=== PATIENT | female | born 1975 | race Caucasian/White ===

== ENCOUNTER 2017-06-13 11:35 | Observation (INO) ==
--- NOTE | 2017-06-13 12:40 | Emergency Department Note ---
Disposition Clinical Impression: Acute appendicitis Qualifiers: Acute appendicitis type: with localized peritonitis Qualified Code(s): K35.3 - Acute appendicitis with localized peritonitis Disposition: Admitted As Inpatient Condition: Fair Referrals: Bethanie Mike [Family Provider] - Forms: Work/School Release, ED Satisfaction Letter Time of Disposition: 12:52 Abdominal Pain HPI - General Chief Complaint: ED Abdominal Pain Stated Complaint: RLQ pain-tx from [facility] Time Seen by Provider: 06/13/17 12:27 Source: patient Nursing Notes Reviewed: Yes Vital Signs Reviewed: Yes - History of Present Illness HPI Narrative: She has right lower quadrant pain which began while she was at work this morning at 2:00 and gradually increase and is constant and sharp and severe and she was seen at the [facility] emergency department and had a CT scan as well as labs and a did review these results and these showed acute appendicitis was asked to come to the emergency department here for consideration of emergent surgery. The patient denies any dysuria, urinary frequency, blood in the urine or stool, vaginal bleeding or discharge. Social history: No smoking or alcohol Pain Scale: 5 - Related Data Home Medications Medication Instructions Recorded Confirmed No Known Home Drugs 06/13/17 06/13/17 Allergies Allergy/AdvReac Type Severity Reaction Status Date / Time Penicillins Allergy Rash Verified 06/13/17 11:43 promethazine [From Phenergan] Allergy Irritable Verified 06/13/17 11:43 Sulfa (Sulfonamide Allergy Hives Verified 06/13/17 11:43 Antibiotics) Review of Systems: Constitutional: No fever Vision: No blurred vision ENT: No rhinorrhea Respiratory: No cough Allergic: No allergies : No blood in urine GI: No blood in stool Hematologic: No bruising Dermatologic: No skin rash Musculoskeletal: No pain in the extremities Neuro: No numbness of the extremities Abdominal Pain PMH - Past Medical History Medical history: Reports: no medical history Female Surgical History: Reports: other 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 EYES: PERRL, no scleral icterus. NOSE: The nose is normal in appearance without rhinorrhea RESP: Normal chest excursion with respiration; breath sounds clear and equal bilaterally; no wheezes, rhonchi, or rales CARD: Regular rhythm, without murmurs, rub or gallop ABD: Non-distended; normal appearance, moderate to severe pain localized to right lower quadrant with some voluntary guarding, elsewhere the abdomen is non -tender, soft,without rigidity, rebound or guarding SKIN: Normal for age and race; warm and dry; no apparent lesions - General Limitations: no limitations General appearance: alert Course Vital Signs Temperature 97.5 F L 06/13/17 11:43 Pulse Rate 108 06/13/17 11:43 Respiratory Rate 18 06/13/17 11:43 Blood Pressure 124/81 06/13/17 11:43 O2 Sat by Pulse Oximetry 99 06/13/17 11:43 Temperature 97.5 F L 06/13/17 11:43 Pulse Rate 108 06/13/17 11:43 Respiratory Rate 18 06/13/17 11:43 Blood Pressure 124/81 06/13/17 11:43 O2 Sat by Pulse Oximetry 99 06/13/17 11:43 Oxygen Delivery Oxygen Delivery Room Air Abdominal Pain - MDM Narrative Medical decision making narrative: Patient does have acute appendicitis and I did review the labs and CT from the previous institution. She declines pain medicine at this time. Did have a recent upper respiratory infection but those symptoms are largely resolved at this time. Surgery was paged. [id number] The case was discussed with Dr. Maciel who is on his way to the emergency department to see the patient [id number]
[2017-06-13] MEDS ORDERED: Ondansetron 4 MG/2 ML VIAL IVP ONE (13:38)
[2017-06-13] MEDS ORDERED: Ketorolac 15 MG/ML VIAL IVP ONE (15:06)
[2017-06-13] MEDS ORDERED: 0.9 % Sodium Chloride 1,000 ML IVC SCH (15:06)
[2017-06-13] MEDS ORDERED: *HR* HYDROmorphone (PF) 1 MG/ML SYRINGE IVP ONE (15:06)
--- NOTE | 2017-06-13 15:24 | General Surg History&Physical ---
Date of Encounter: 06/13/17 Time of Encounter: 15:00 Assessment and Plan (1) Acute appendicitis Current Visit: Yes Status: Acute The assessment and plan as outlined above was discussed with the patient and/or family members who expressed understanding and agreement. All questions were answered. Bowel rest IV fluids IV antibiotics- Cipro and Flagyl to be started now Supportive care and pain control Serial abdominal exams Risks, benefits, alternatives, expected outcomes have been reviewed with the patient she has agreed to proceed to the operating room for a laparoscopic appendectomy with Dr. Maciel in the next 24 hours. Incentive spirometer every 1 hour while awake PPI therapy daily Stool softeners twice daily Repeat a.m. labs Qualifiers: Acute appendicitis type: with localized peritonitis Qualified Code(s): K35.3 - Acute appendicitis with localized peritonitis (2) DVT prophylaxis Current Visit: Yes Status: Acute The assessment and plan as outlined above was discussed with the patient and/or family members who expressed understanding and agreement. All questions were answered. EPCDs to bilateral lower extremities for DVT prophylaxis Ambulate Colace 3 times a day with assistance History of Present Illness Chief complaint: Abdominal pain HPI: Ms. Munroe is a 42 year old female who reports the emergency department with complaints of sudden onset of abdominal discomfort at 2 AM this morning. She states the pain has progressively worsened since onset. She reports it as a sharp and stabbing pain which waxes and wanes. She states that certain positions do help the pain feel better (lying on her stomach). Movement and walking makes the pain worse. She has never experienced pain like this in the past. She did have multiple episodes of nausea and vomiting after onset of the pain this morning. She does report bright red blood in her vomit after multiple episodes of emesis. She admits to a fever up to 100 degrees. She admits to uncontrollable chills. Admits to loss of appetite and feeling of being bloated. She states that over the last week she has had a change in bowel habits and feels as though she is constipated. Denies any shortness of breath or chest pain. Denies any difficulty with urination however states that her urine is darker than normal. The patient states that she has had flulike symptoms for approximately one week and was swabbed for the flu which was negative. She states that she was feeling much better yesterday until sudden onset of pain last night. She was initially evaluated at [facility] and did have a CAT scan evaluation which shows findings consistent with acute appendicitis. The patient requested transfer to [place] for further workup and treatment. Past Med Surg Social Fam HX - Past Medical History Source: patient Medical history: no medical history Psychiatric history: anxiety - Past Surgical History Surgical History: cholecystectomy, other (Laparoscopy X 3 for endometriosis) - Social History Smoking Status: Never smoker Smokeless Tobacco Status: No Alcohol use: none Drug use: none Occupational status: employed Current living situation: Home - Independent Activity Level: Independent ambulation - Family History Mother Living Status: Still Living Hx Family Endocrine Disorder: Yes (Parathyroid growth (removed)) Father Living Status: Still Living Sister Living Status: Still Living Hx Family GI Disorders: Yes (IBS, diverticular disease) Medications and Allergies No Known Home Drugs 06/13/17 [History] 3 Allergy/AdvReac Type Severity Reaction Status Date / Time Penicillins Allergy Rash Verified 06/13/17 11:43 promethazine [From Phenergan] Allergy Irritable Verified 06/13/17 11:43 Sulfa (Sulfonamide Allergy Hives Verified 06/13/17 11:43 Antibiotics) Review of Systems All systems PM: reviewed and no additional remarkable complaints except as stated (in the HPI) All systems PM: A 10-system review of systems was performed and is negative for pertinent findings except as documented above in the HPI. General Surgery Exam Initial Vital Signs Temp Pulse Resp BP Pulse Ox 97.5 F L 108 18 124/81 99 06/13/17 11:43 06/13/17 11:43 06/13/17 11:43 06/13/17 11:43 06/13/17 11:43 - General physical appearance well developed, well nourished, no distress, moderate pain - Eyes normal ocular movement - ENT normal mucosa, atraumatic, normocephalic - Neck trachea midline - Respiratory normal respiratory effort, clear to auscultation - Cardiovascular Cardiovascular exam: Present: tachycardia (HR 110) - Abdomen Abdomen general surgery: Present: bowel sounds present, soft, tender Abdominal Tenderness: Present: RLQ, suprapubic - Integumentary Integumentary general surgery: Present: warm and dry - Neurologic Present: CN 2-12 grossly intact - Psychiatric Psychiatric general surgery: Present: appropriate, oriented to person, oriented to place, oriented to time, speech is normal, memory intact Results - Labs All other labs normal. - Imaging Additional studies: CT results from [facility] reviewed - Attending Attestation For this encounter, I have reviewed the RN ANTE PARTUM or PA documentation, treatment plan, and medical decision making; and I have had face to face time with this patient.
[2017-06-13] MEDS ORDERED: Naloxone 0.4 MG/ML INJ IVP PRN (15:26)
[2017-06-13] MEDS ORDERED: Ondansetron 4 MG/2 ML VIAL IVP PRN (15:26)
[2017-06-13] MEDS ORDERED: Acetaminophen 325 MG TABLET PO PRN (15:29)
[2017-06-13] MEDS ORDERED: *HR* OxyCODONE/APAP 5/325 TABLET PO PRN (15:29)
[2017-06-13 15:45] LABS: eGFR For African Americans > 60 (> 60); eGFR For Non-African Americans > 60 (> 60)
[2017-06-13] MEDS: MetroNIDAZOLE 500 MG/100 ML 500 MG/100 ML BAG IVPB SCH (15:51)
[2017-06-13 16:09] LABS: Basophils % 0.2 %; Hematocrit 36.5 % (35.3-44.9); Hemoglobin 12.7 g/dL (11.5-15.4); Immature Granulocytes % 0.5 % (0-4); Lymphocytes # 0.6 K/mcL (0.6-4.6); Lymphocytes % 2.8 %; Mean Corpuscular HGB Conc 34.8 g/dL (31.6-35.5); Mean Corpuscular Hemoglobin 32.2 pg (28.0-33.3); Mean Corpuscular Volume 92.4 fL (83.0-100.0); Mean Platelet Volume 10.4 fL (9.4-12.4); Monocytes # 1.5 K/mcL (0.0-1.3); Monocytes % 7.3 %; Neutrophils # 18.2 K/mcL (1.6-8.9); Platelet Count 237 K/mcL (140-400); Red Blood Count 3.95 M/mcL (3.82-4.97); Red Cell Distribution Width 12.4 % (11.5-14.5); Segmented Neutrophils % 89.2 %
[2017-06-13] MEDS: *HR* HYDROmorphone (PF) 1 MG/ML SYRINGE IVP PRN ×2 (17:05→20:01)
--- NOTE | 2017-06-13 22:32 | Anesthesia Evaluation PreOp ---
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 Other Medical History: Denies Any Significant HX Anesthesia History: Past Anesthesia, Problems (PONV) Test: Negative (06/13/2017) Alcohol Use: none Drug use: none Medications and Allergies No Known Home Drugs 06/13/17 [History] 3 Allergy/AdvReac Type Severity Reaction Status Date / Time Penicillins Allergy Rash Verified 06/13/17 11:43 promethazine [From Phenergan] Allergy Irritable Verified 06/13/17 11:43 Sulfa (Sulfonamide Allergy Hives Verified 06/13/17 11:43 Antibiotics) - Meds/Allergy Pre-op Review Medications Reviewed: Yes Allergies Reviewed: Yes Beta Blockers on Current Med List: No Anesthesia Results - Labs 06/13/17 15:25 06/13/17 15:25 Laboratory Tests 06/13/17 14:28 Urine Test Negative Anesthesia Exam Vital Signs/O2 Sat, Most Current Temp Pulse Resp BP Pulse Ox 98.5 F 118 14 100/67 98 06/13/17 19:31 06/13/17 19:31 06/13/17 19:31 06/13/17 19:31 06/13/17 19:31 Height: 5'5''/1.65 m Weight: 148 lbs/67 kg NPO (# of Hours): 8 Pain Scale: 4 (abdomen) Pain Scale Used: Numeric (1 - 10) - HEENT Pupil (Motor): EOMI Mallampati: II Teeth: Normal Oral Opening: Greater than 3 - FINANCIAL PROCESSING CLERK LOC: Oriented FINANCIAL PROCESSING CLERK Motor: Normal RUE, Normal LUE, Normal RLE, Normal LLE, Normal Face FINANCIAL PROCESSING CLERK Sensory: Normal: RUE, LUE, RLE, LLE, Face - Cardiac Rhythm: Regular Murmur: None - Pulmonary Breath Sounds: bilateral Clear Respiratory Effort: Symmetrical Anesthesia Assess/Plan ASA Score: 2 Modified Masoud Scale for Level of Consciousness: Cooperative, oriented, and tranquil Anesthetic Plan: General Monitoring Plan: Standard Monitors Recovery Plan: PACU
[2017-06-13] MEDS ORDERED: Albuterol 2.5 MG/3 ML NEBULIZER ONE (22:39)
[2017-06-13] MEDS ORDERED: Scopolamine Patch 1.5 MG PATCH.TD72 ONE (22:39)
[2017-06-13] MEDS ORDERED: *HR* HYDROmorphone (PF) 1 MG/ML SYRINGE IVP PRN (22:43)
[2017-06-13] MEDS ORDERED: *HR* FentaNYL (PF) 100 MCG/2 ML VIAL ONE (22:48)
[2017-06-13] MEDS ORDERED: *HR* Midazolam HCl 2 MG/2 ML VIAL ONE (22:48)
[2017-06-13] MEDS ORDERED: *HR* Propofol 200 MG/20 ML VIAL IVP ONE (22:48)
[2017-06-13] MEDS ORDERED: *HR* Morphine 10 MG/ML VIAL ONE (22:48)
[2017-06-13] MEDS ORDERED: Ondansetron 4 MG/2 ML VIAL ONE (22:49)
[2017-06-13] MEDS ORDERED: *HR* Rocuronium Bromide 50 MG/5 ML VIAL ONE (22:49)
[2017-06-13] MEDS ORDERED: Lidocaine -MPF 2% 2 ML VIAL ONE (22:49)
[2017-06-13] MEDS ORDERED: *HR* Succinylcholine 200 MG/10 ML VIAL IVP ONE (22:49)
[2017-06-13] MEDS ORDERED: Dexamethasone 4 MG/ML VIAL ONE (22:49)
[2017-06-13] MEDS ORDERED: Lidocaine -MPF 4% 5 ML AMPUL ONE (22:54)
[2017-06-13] MEDS ORDERED: Neostigmine Methylsulfate 3 MG/3 ML SYRINGE ONE (23:27)
--- NOTE | 2017-06-14 00:20 | Anesthesia Evaluation Post Op ---
Date of Encounter: 06/14/17 Time of Encounter: 00:19 - Vital Signs Vital Signs: Vital Signs/O2 Sat, Most Current Temp Pulse Resp BP Pulse Ox 98.5 F 98 14 107/73 97 06/13/17 23:49 06/14/17 00:09 06/14/17 00:09 06/14/17 00:09 06/14/17 00:09 - Lungs Lungs: Clear Ascult./Percussion - Airway Airway: Non-obstructed - Cardiovascular Regular Rate - Mental Status Mental Status: Asleep with brisk response to light stimulation - Pain Pain Scale: 0 Pain Scale used: Numeric (1 - 10) - Nausea Vomiting Nausea Vomiting: Not Present - Hydration Hydration: Ice chips, Has not voided - Discharge PostOp Status: Transfer Patient to floor
[2017-06-14] MEDS ORDERED: Naloxone 0.4 MG/ML INJ IVP PRN (00:27)
[2017-06-14] MEDS ORDERED: *HR* OxyCODONE/APAP 5/325 TABLET PO PRN (00:27)
[2017-06-14] MEDS ORDERED: 0.9 % Sodium Chloride 1,000 ML IVC SCH (00:27)
[2017-06-14] MEDS ORDERED: Acetaminophen 325 MG TABLET PO PRN (00:27)
[2017-06-14] MEDS ORDERED: *HR* HYDROmorphone (PF) 1 MG/ML SYRINGE IVP PRN (00:27)
[2017-06-14] MEDS ORDERED: Ondansetron 4 MG/2 ML VIAL IVP PRN (00:27)
[2017-06-14] MEDS: MetroNIDAZOLE 500 MG/100 ML 500 MG/100 ML BAG IVPB SCH (01:14)
[2017-06-14 03:21] VITALS: BP 107/68
[2017-06-14] MEDS ORDERED: MetroNIDAZOLE 500 MG/100 ML 500 MG/100 ML BAG IVPB SCH (08:00)
--- NOTE | 2017-06-14 09:05 | Discharge Summary ---
Date of Encounter: 06/14/17 Time of Encounter: 09:02 - Discharge Diagnosis (1) Acute appendicitis Priority: Primary Status: Acute Qualifiers: Acute appendicitis type: with localized peritonitis Qualified Code(s): K35.3 - Acute appendicitis with localized peritonitis - Discharge Medications Home Medications: No Known Home Drugs 06/13/17 [History] Allergies/Adverse Reactions: 3 Allergy/AdvReac Type Severity Reaction Status Date / Time Penicillins Allergy Rash Verified 06/13/17 11:43 promethazine [From Phenergan] Allergy Irritable Verified 06/13/17 11:43 Sulfa (Sulfonamide Allergy Hives Verified 06/13/17 11:43 Antibiotics) General Surgery Exam Initial Vital Signs Temp Pulse Resp BP Pulse Ox 97.5 F L 108 18 124/81 99 06/13/17 11:43 06/13/17 11:43 06/13/17 11:43 06/13/17 11:43 06/13/17 11:43 - Eyes PERRL - Neck trachea midline - Abdomen Abdomen general surgery: Present: soft, non tender Date of admission: 06/13/17 14:12 Primary care physician: PCP NONE - Patient Status Disposition: Home, Self-Care Condition: Good Overall status at discharge: patient is progressing back to baseline - Discharge Instructions Follow Up With: NONE,PCP [Primary Care Provider] - Bethanie Mike [Family Provider] - Additional Instructions: Patient will be off work until a week from today. At that point she can return to her normal work activities. - Diet and Activity Activity: increase activity as tolerated Diet: advance to your usual diet - Hospital Course Hospital course: Ms. Munroe is a 42 year old female - Time Spent with Patient Total time spent providing and/or coordinating discharge services: Labs on day of discharge: Labs from last 24 hours 06/13/17 06/13/17 06/13/17 15:25 15:25 14:28 WBC 20.4 H RBC 3.95 Hgb 12.7 Hct 36.5 MCV 92.4 MCH 32.2 MCHC 34.8 RDW 12.4 Plt Count 237 MPV 10.4 Immature Gran % 0.5 Seg Neutrophils % 89.2 Lymphocytes % 2.8 Monocytes % 7.3 Eosinophils % 0.0 Basophils % 0.2 Neutrophils # 18.2 H Lymphocytes # 0.6 Monocytes # 1.5 H Eosinophils # 0.0 Basophils # 0.0 Creatinine 0.64 Est GFR ( Amer) > 60 Est GFR (Non-Af Amer) > 60 Urine Test Negative
== END 2017-06-14 11:19 | disposition home or self-care (01) ==
LOC: EMEROO 11:35 → 3ANU 11:35
PROVIDERS: ADMIT Surgery; ATTEND Surgery